=== PATIENT | female | born 1995 | race Caucasian/White ===

== ENCOUNTER 2022-01-17 15:08 | Emergency (ER) | payer OTHER, SELFPAY ==
--- NOTE | ~2022-01-17 | XR_ITS ---
EXAMINATION: XR hand LT min 3V EXAM DATE: 01/17/2022 15:40 INDICATION: Initial encounter following injury, with pain of the left hand TECHNIQUE: Left hand frontal, lateral and oblique projections obtained and reviewed. There is no gustavo or study for comparison. FINDINGS: Left metacarpal bones are unremarkable. There are no acute fractures or dislocations iden tified. There is no subcutaneous gas. The soft tissue is unremarkable. There are no radiopaque fo reign bodies. IMPRESSION: Left hand exam without acute osseous findings. Reviewed, dictated and finalized at location A. AUDIT MANAGER
[2022-01-17 15:16] VITALS: BP 120/73; PULSE 90; RESP 20; TEMP 36.7; O2SAT 100
--- NOTE | 2022-01-17 15:20 | ED.UPPEXIN ---
HPI - Extremity Injury (Upper) General Chief Complaint: Extremity Injury, Upper Stated Complaint: Left Hand Injury/Work Comp Time Seen by Provider: 01/17/22 15:21 Source: patient and RN notes reviewed History of Present Illness HPI narrative: Patient is a 26-year-old female who presents the urgent care with complaints of a left hand injury while working for [employer] today. Patient states that she was loading boxes off a pallet which fell onto her left hand at 930 this morning. Patient states that the pain increased throughout her workday. Patient has not taken anything [id number] for her pain. No other complaints or injuries. No acute distress noted. Patient aware of the plan of care. Some parts of this dictation were generated by voice recognition software and may contain typographical and/or grammatical inaccuracies. Related Data Home Medications Medication Instructions Recorded Confirmed bupropion HCl [Wellbutrin XL] 300 mg PO QAM 01/17/22 01/17/22 Allergies Allergy/AdvReac Type Severity Reaction Status Date / Time No Known Allergies Allergy Verified 01/17/22 15:29 Review of Systems Review of Systems: CONSTITUTIONAL: Denies fever, chills, or sweats. EYES: Denies visual changes, redness, or discharge. ENT: Denies rhinorrhea, sore throat, otalgia, congestion CARDIOVASCULAR: Denies chest pain, palpitations, or edema. RESPIRATORY: Denies cough or dyspnea. GASTROINTESTINAL: Denies abdominal pain, nausea, vomiting, or diarrhea. GENITOURINARY: Denies dysuria or hematuria. SKIN: Denies rash or itching. MUSCULOSKELETAL: Reports of left hand pain due to injury NEUROLOGIC: Denies headache, numbness, or weakness. PMFSH Comments At the time of my signature, I reviewed and agree with the nursing past medical, surgical, social, and family history. There is no relevant family history pertinent to the patient complaint. Exam Narrative: GENERAL: This is a well-nourished, well-developed patient, in no apparent distress. HEAD: normocephalic, atraumatic. EYES: PERRL. Sclera clear/white. Vision is grossly intact. EARS: External ears normal NOSE: External nose normal with no obvious nasal discharge, nares without redness, no rhinorrhea. THROAT: Mucous membranes moist, posterior pharynx clear. NECK: Neck supple CARDIOVASCULAR: Regular rate and rhythm without murmurs, gallops, or rubs. RESPIRATORY: Clear to auscultation. Breath sounds equal bilaterally. No wheezes, rales, or rhonchi. SKIN: warm, intact with no suspicious lesions or rash, good texture and turgor. NEURO: awake, alert, and oriented to person, place and time. There were no obvious focal neurologic abnormalities. EXTREMITIES: 2 cm area of ecchymosis/edema noted to the ulnar aspect of the dorsal left hand. Positive strong left radial pulse with capillary refill less than 2 seconds. Range of motion to left upper extremity within normal limits. Course Course Level of Care: Express Care Visit Vital Signs Vital signs: Vital Signs Temperature 98.0 F 01/17/22 15:16 Pulse Rate 90 01/17/22 15:16 Respiratory Rate 20 01/17/22 15:16 Blood Pressure 120/73 01/17/22 15:16 Pulse Oximetry 100 01/17/22 15:16 Temperature 98.0 F 01/17/22 15:16 Pulse Rate 90 01/17/22 15:16 Respiratory Rate 20 01/17/22 15:16 Blood Pressure 120/73 01/17/22 15:16 Pulse Oximetry 100 01/17/22 15:16 Reviewed MDM - Extremity Injury (Upper) MDM Narrative Medical decision making narrative: Reviewed x-ray results with the patient. She is aware that x-ray was negative for any abnormality/fractures. Advised patient to use ice/Tylenol/ibuprofen as needed for comfort and pain. May use a Augustine wrap as needed. If you develop any increase in swelling or pain, would advise follow-up with your PCP and/or workman's comp related occupational health. Follow-up with your PCP within 2 to 5 days of your worsening symptoms or failure to improve. Differential Diagnosis Differential d
== END 2022-01-17 16:12 | disposition home or self-care (01) ==
PROVIDERS: Emergency Provider Nurse Practitioner Family
DX: S60.222A Contusion of left hand, initial encounter (principal); W20.8XXA Other cause of strike by thrown, projected or falling object, initial encounter; Y99.0 Civilian activity done for income or pay; F32.A Depression, unspecified
CPT/HCPCS: 73130; 99213; G0463

== ENCOUNTER 2022-12-10 14:30 | Emergency (ER) | payer OTHER, SELFPAY ==
[2022-12-10 14:34] VITALS: BP 114/71; PULSE 77; RESP 16; TEMP 36.9; O2SAT 99
--- NOTE | 2022-12-10 14:44 | ED.UPPEXIN ---
HPI - Extremity Injury (Upper) General Chief Complaint: Extremity Injury, Upper Stated Complaint: Pains thru left shoulder/back Time Seen by Provider: 12/10/22 14:44 History of Present Illness HPI narrative: PATIENT PRESENTS WITH LEFT SHOULDER PAIN. PATIENT FEELS THAT SHE HAS PULLED A MUSCLE. PATIENT WORKS FOR [employer] IN THE [employer] ON A DAILY BASIS. NO CHEST PAIN AND NO SHORTNESS OF BREATH NO URI SYMPTMS. PATIENTS HAS NOT TAKEN ANYTHING OTC FOR HER SYMPTOMS AND WOULD LIKE A WORK NOTED. Related Data Home Medications Medication Instructions Recorded Confirmed bupropion HCl 300 mg 24 hr tablet, 300 mg PO QAM 01/17/22 01/17/22 extended release (Wellbutrin XL) Allergies Allergy/AdvReac Type Severity Reaction Status Date / Time No Known Allergies Allergy Verified 01/17/22 15:29 Review of Systems Review of Systems: CONSTITUTIONAL: DENIES FEVER, CHILLS, OR SWEATS. EYES: DENIES VISUAL CHANGES, REDNESS, OR DISCHARGE. ENT: DENIES RHINORRHEA, CONGESTION, SORE THROAT, OR OTALGIA. CARDIOVASCULAR: DENIES CHEST PAIN, PALPITATIONS, OR EDEMA. RESPIRATORY: DENIES COUGH OR DYSPNEA. GASTROINTESTINAL: DENIES ABDOMINAL PAIN, NAUSEA, VOMITING, OR DIARRHEA. GENITOURINARY: DENIES DYSURIA OR HEMATURIA. SKIN: DENIES RASH OR ITCHING. MUSCULOSKELETAL: DENIES BACK PAIN, JOINT PAIN, OR MYALGIA. NEUROLOGIC: DENIES HEADACHE, NUMBNESS, OR WEAKNESS. PSYCHIATRIC: DENIES ANXIETY OR DEPRESSION. PMFSH Comments AT TIME OF SIGNATURE, AGREE WITH NURSING PAST MEDICAL, SURGICAL, SOCIAL AND FAMILY HISTORY. THERE IS NO RELEVANT FAMILY HISTORY PERTINENT TO THE PRESENTING COMPLAINT Exam Narrative: GENERAL: WELL-APPEARING, WELL-NOURISHED, AND IN NO ACUTE DISTRESS. HEAD: NORMOCEPHALIC, ATRAUMATIC. EYES: PERRLA AND EOMI. ENT: NARES CLEAR, NO RHINORRHEA OR EPISTAXIS. MUCOUS MEMBRANES MOIST. NECK: SUPPLE. CHEST: CLEAR TO AUSCULTATION. NO RESPIRATORY DISTRESS. HEART: REGULAR RATE AND RHYTHM. NO MURMUR HEARD. NORMAL PERIPHERAL PULSES. ABDOMEN: SOFT, NONTENDER, NONDISTENDED, NORMAL ACTIVE BOWEL SOUNDS. EXTREMITIES: NORMAL RANGE OF MOTION. NO EDEMA. SHOULDER EXAM NO SWELLING, BRUISING, SKIN CHANGES. SKIN INTACT. NORMAL RADIAL PULSE. NO DEFORMITY OF SHOULDER. NO CLAVICLE TENDERNESS. NORMAL UE SENSATION AND STRENGTH. ROM EVALUATED - CAN RAISE UE ABOVE SHOULDER, CAN ABDUCT, ADDUCT, EXTERNALLY ROTATE AND CAN INTERNALLY ROTATE AND RAISE THUMB UP THE SPINE. NO AC JOINT TENDERNESS, CAN CROSS ARM HORIZONTALLY AND PLACE HAND ON OPPOSITE SHOULDER, NO WINGING OF THE SCAPULA. SUPRASPINATUS APPEARS NORMAL WITH ARMS STRAIGHT OUT AT 30 DEGREES, THUMB DOWN , CAN ABDUCT AGAINST RESISTANCE. SKIN: WARM, DRY, NO RASH. NEURO: NO FOCAL DEFICITS. ALERT AND ORIENTED X3. CARLA COMA SCALE EYE OPENING: SPONTANEOUS 4 CARLA COMA SCALE MOTOR: OBEYS COMMANDS 6 CARLA COMA SCALE VERBAL: ORIENTED 5 CARLA COMA SCALE TOTAL 15 Course Course Level of Care: Express Care Visit Vital Signs Vital signs: Vital Signs Temperature 36.9 C 12/10/22 14:34 Pulse Rate 77 12/10/22 14:34 Respiratory Rate 16 12/10/22 14:34 Blood Pressure 114/71 12/10/22 14:34 Pulse Oximetry 99 12/10/22 14:34 Oxygen Delivery Room Air 12/10/22 14:34 Temperature 36.9 C 12/10/22 14:34 Pulse Rate 77 12/10/22 14:34 Respiratory Rate 16 12/10/22 14:34 Blood Pressure 114/71 12/10/22 14:34 Pulse Oximetry 99 12/10/22 14:34 Oxygen Delivery Room Air 12/10/22 14:34 DISCUSSED X-RAY EXTREMITY TODAY BUT PATIENT DECLINES X-RAY FEELS THAT IT IS MUSCLE STRAIN AND NO BONE INVOLVEMENT MDM - Extremity Injury (Upper) Differential Diagnosis Differential diagnosis: Likely sprain and strain of wrist, fracture of wrist, finger sprain, dislocation of finger, Colles' fracture, fracture of hand, dislocation of shoulder, fracture of humerus and fracture of clavicle Discharge Plan Discharge Clinical Impression: Muscle strain, Left shoulder strain, Strain of muscle(s
== END 2022-12-10 14:50 | disposition home or self-care (01) ==
PROVIDERS: Emergency Provider Nurse Practitioner Family; PCP Family Medicine
DX: S46.912A Strain of unspecified muscle, fascia and tendon at shoulder and upper arm level, left arm, initial encounter (principal); S46.012A Strain of muscle(s) and tendon(s) of the rotator cuff of left shoulder, initial encounter; X50.3XXA Overexertion from repetitive movements, initial encounter; Y99.0 Civilian activity done for income or pay
CPT/HCPCS: 99213; G0463

== ENCOUNTER 2024-03-27 12:54 | Emergency (ER) | payer OTHER, SELFPAY ==
--- NOTE | ~2024-03-27 | XR_ITS ---
EXAMINATION: XR knee LT min 4V DATE: 03/27/2024 13:24 INDICATION: Left knee trauma with medial patellar subluxation TECHNIQUE: Anteroposterior, 2 oblique, sunrise and crosstable lateral views of the affected knee were obtained COMPARISON: None. FINDINGS: Alignment is normal. No fracture. Joint spaces are normal. Small knee joint effusion without layerin g lipohemarthrosis. Soft tissues are unremarkable. IMPRESSION: 1. Small left knee joint effusion. No osseous abnormality. Reviewed, dictated and finalized at location A.
[2024-03-27 13:05] VITALS: BP 131/74; PULSE 83; RESP 16; TEMP 36.9; O2SAT 100
--- NOTE | 2024-03-27 13:09 | ED.LOWEXIN ---
HPI - Extremity Injury (Lower) General Chief Complaint: Extremity Injury, Lower Stated Complaint: Left Knee Injury Source: patient Mode of arrival: ambulatory Limitations: no limitations History of Present Illness HPI Narrative: [age] year female presented for complaint of left knee pain after injury yesterday. She states the knee was dislocated after she struck the washing machine; patella displaced laterally per the photo provided. States after about one hour, it moved into place. Continues to report muscle spasm surrounding the site, and the knee feels tension. Able to bear some weight and has near normal ROM. Taking ibuprofen. Related Data Allergies Allergy/AdvReac Type Severity Reaction Status Date / Time No Known Allergies Allergy Verified 03/27/24 13:11 Review of Systems Review of Systems: CONSTITUTIONAL: Denies body aches, fever, chills CARDIOVASCULAR: Denies chest pain, palpitations, or edema. RESPIRATORY: Denies cough or dyspnea. GASTROINTESTINAL: Denies abdominal pain, nausea, vomiting, or diarrhea. SKIN: Denies rash, itching, or wounds. MUSCULOSKELETAL: Reports left knee pain NEUROLOGIC: Denies headache, numbness, tingling, or weakness. All systems reviewed & are unremarkable except as noted in HPI and below PMFSH Comments At time of signature, I have reviewed and agree with nursing past medical, surgical, social and family history unless otherwise noted. Please see nursing chart for further information. There is no relevant family history pertinent to the presenting complaint Exam Narrative: GENERAL: Well-appearing, well-nourished, and in no acute distress. CHEST: Speaks in full sentences. No respiratory distress. HEART: Regular rate and rhythm. Normal and equal peripheral pulses. EXTREMITIES: left leg has normal strength and sensation, slightly decreased range of motion at knee, endorses pain with movements. mild swelling, no ecchymosis, no redness or warmth. No point tenderness. No tenderness over the infrapatellar tendon. No tenderness over the proximal fibular head. No quadriceps tenderness. No open wounds, or obvious deformity; alignment normal, pulse palpable and equal bilaterally, skin warm, dry, pink. Capillary refill less than 3 seconds. SKIN: Warm, dry, no rash. NEURO: Alert and oriented x3. PSYCH: Normal mood and affect Course Course Emergency Course: Patient is aware of diagnosis, understands and agrees to treatment plan. Anticipatory guidance given. Patient agrees to follow-up as directed and is aware of reasons to seek care at the emergency department. Portions of this record may have been created with voice recognition software Level of Care: Express Care Visit Vital Signs Vital signs: Vital Signs Temperature 98.4 F 03/27/24 13:05 Pulse Rate 83 03/27/24 13:05 Respiratory Rate 16 03/27/24 13:05 Blood Pressure 131/74 03/27/24 13:05 Pulse Oximetry 100 03/27/24 13:05 Oxygen Delivery Room Air 03/27/24 13:05 Temperature 98.4 F 03/27/24 13:05 Pulse Rate 83 03/27/24 13:05 Respiratory Rate 16 03/27/24 13:05 Blood Pressure 131/74 03/27/24 13:05 Pulse Oximetry 100 03/27/24 13:05 Oxygen Delivery Room Air 03/27/24 13:05 Reviewed MDM - Extremity Injury (Lower) MDM Narrative Medical decision making narrative: results of x-ray reviewed with patient. Knee immobilizer applied. Patient has crutches at home. She will follow-up with ortho. Discussed physical exam findings. Advised supportive measures and signs/symptoms to go to the ER. Pt is appropriate for outpt treatment and f/u. Differential Diagnosis Differential diagnosis: Likely acute internal derangement of knee and other (osteoarthritis, patella dislocation, patellar tendonitis, tendon rupture, gout, bakers cyst, septic bursitis, dvt, tibial plateau fracture) Imaging Data Radiologist's impression: Patient: Rosita Hammer : 1995 MR#: [id number] Age:
== END 2024-03-27 14:03 | disposition home or self-care (01) ==
PROVIDERS: Emergency Provider Nurse Practitioner Family
DX: M25.562 Pain in left knee (principal)
CPT/HCPCS: 73564; 99213; G0463; L1830

== ENCOUNTER 2025-03-16 11:39 | Emergency (ER) | payer OTHER, SELFPAY ==
--- OUTSIDE RECORDS SUMMARY | 2025-03-16 11:42 | XMS_ITS | Continuity of Care Document ---
Author Organization [facility] Address [address] [place] [address] [place] [address] Phone Care Team Providers Care Ornamental Iron Worker Name Role Phone Augustin Jackson MD Unavailable Unavailable Allergies, Adverse Reactions, Alerts Substance Reaction Status Criticality No Known Allergies Active No Inform ation Medications Medication Instructions Dosage Effective Dates (start - stop) Status Comments Concerta 27 mg tablet,extended release take 1 tablet by oral route every day in the morning 27 MG - Active Wellbutrin XL 150 mg 24 hr tablet, extended release take 1 tablet by oral route every morning 150 MG - Active Procedures Procedure Date PREV VISIT, NEW, AGE 18-39 OFFICE/OUTPATIENT VISIT, [facility] Advance Directives Directive Yes / No Effective Date File Name No Information Encounters Encounter Description Practice Location Reason(s) For Visit Diagnoses Date Provider Providers Copied on Encounter PREV VISIT, NEW, AGE 18-39 [facility] [place], [address] [place], [place], [id number], [place] tel:[phone] [facility] [place] physical (chief complaint) Encounter for general adult medical exam w abnormal findingsOther primary ovarian failureAttention deficitGeneralized Anxiety Disorder 3 [address] [place], [id number] , [place]. tel:[phone] Family History Family Member Type Diagnosis Age At Onset Mother Problem pancreatitis Sister Problem bipolar Father Problem lung [place] Payers Payer name Insurance type Covered alliance party ID Authoriza tion(s) [facility] CI [id number] Social History Type Description Quantity Date Captured Comments Alcohol Use Details Caffeine Use Details Unknown Tobacco Use Status Ex-cigarette smoker 025 Smoking Status Former smoker Smoking Tobacco Use Details Cigarette: Age Started: 17, Age Stopped: 20, Years Used 3 Cigarette: 2 Cigarettes per day, Pack Year: 0.3 Sex Female Vital Signs Date / Time: Height Weight BMI Pulse Rate Blood Pressure Temperature Respiratory Rate Body Surface Area Head Circumference BMI percentile Pulse Ox Inhaled Ox 10:47 AM 67.00 in 163.00 lbs 25.5 3 kg/m eter (2) 94 /min 110/70 mm[Hg] 97.9 F 16 /min Chief Complaint And Reason For Visit From encounter dated '03/12/2025 10:42'. physical (chief complaint). Description: Pt needs annual physical pt has history of ADD and she used to takes strattera and concerta 15 years ago and she also has chronic anxiety and depression and she was on wellbutrin 3 years ago which did help her depression but she stopped it 3 years ago due toinsurance issue Pt mainly has ADD symptoms currently and not so much anxiety or depression Pt denies any suicidal or homicidal thought Pt denies any crying spells Pt has premature ovarian failure. Ptnever had period all her life. Pt states that her ovary and uterus is chronically shrunk in size and she saw [employer] when she was teenager and was told that she has premature ovarian failure Plan Of Treatment Date Type Action Status Referral Ordered: [place], PELVIC (NONOBSTETRIC); ordered Appointment Rosita Hammer BOOKED History Of Present Illness Encounter Date Complaint History Of Prese nt Illness physical Pt needs annual physical pt has history of ADD and she used to takes strattera and concerta 15 years ago and she also has chronic anxiety and depression and she was on wellbutrin 3 years ago which did help her depression but she stopped it 3 years ago due to insurance issue Pt mainly has ADD symptoms currently and not so much anxiety or depression Pt denies any suicidal or homicidal thought Pt denies any crying spells Pt has premature ovarian failure. Pt never had period all her life. Pt states that her ovary and uterus is chronically shrunk in size and she saw [employer] when she was teenager and was told that she has premature ovarian failure Instructions Date Instruction Additional Infor mation No Information Assessments Type Assessment Date assessment Encounter for general adult medi alexis exam w abnormal findings assessment Other primary ovarian failure Ap assessment Attention deficit assessment Generalized Anxiety Disorder Feb Mental Status Date Cognitive Assessment Orientation - [place] ed to time, place, person, situation.
--- OUTSIDE RECORDS SUMMARY | 2025-03-16 11:42 | XMS_ITS | Referral Summary ---
Author Organization [facility] Virtual Care Address [address] [place] [phone] Phone Care Team Providers Care Adult Education Teacher Name Role Phone Subha Giang NP Primary Care Provider Social History Tobacco Use Types Packs/Day Years Used Date Smoking Tobacco: Never Assessed Personal Safety Answer Date Recorded Getting School Help Needed Not on file 04/19 Comments Unknown Sex and Gender Information Value Date Recorded Sex Assigned at Not on file Legal Sex Female 10:41 PM CDT Gender Identity Not on file Sexual Orientation Not on file Plan of Treatment Not on file Care Teams Adult Education Teacher Relationship Specialty Start Date End Date Subha Giang NP [address] [address] PCP - General Infectious Diseases 07/01/24
--- OUTSIDE RECORDS SUMMARY | 2025-03-16 11:42 | XMS_ITS | Clinical Summary ---
Author Organization [facility] Virtual Care Address [address] [place] [phone] Phone Care Team Providers Care Rug Dry Room Attendant Name Role Phone Subha Giang NP Primary [...] of Treatment Not on file Care Teams Rug Dry Room Attendant Relationship Specialty Start Date End Date Subha Giang NP [address] [address] PCP - General Infectious Diseases 07/01/24
--- OUTSIDE RECORDS SUMMARY | 2025-03-16 11:45 | XMS_ITS | Continuity of Care Document ---
Author Organization [facility] Address [address] [place] [address] [place] [address] Phone Care Team Providers Care Traffic Operator Name Role Phone Augustin Jackson MD Unavailable Unavailable Allergies, Adverse Reactions, Alerts Substance Reaction Status Criticality No Known Allergies Active No Inform ation Medications Medication Instructions Dosage Effective Dates (start - stop) Status Comments Wellbutrin XL 150 mg 24 hr tablet, extended release take 1 tablet by oral route every morning 150 MG - Active Concerta 27 mg tablet,extended release take 1 tablet by oral route every day in the morning 27 MG - Active Procedures Procedure Date PREV VISIT, NEW, AGE 18-39 OFFICE/OUTPATIENT VISIT, [facility] Advance Directives Directive Yes / No Effective Date File Name No Information Encounters Encounter Description Practice Location Reason(s) For Visit Diagnoses Date Provider Providers Copied on Encounter PREV VISIT, NEW, AGE 18-39 [facility], [address] [place], [place], [id number], [place] tel:[phone] [facility] physical (chief complaint) Encounter for general adult medical exam w abnormal findingsOther primary ovarian failureAttention deficitGeneralized Anxiety Disorder 3 5 Manuel Ruffin. [address] [place], [id number] , [place]. tel:[phone] Family History Family Member Type Diagnosis Age At Onset Mother Problem pancreatitis Sister Problem bipolar Father Problem lung [place] Payers Payer name Insurance type Covered constitution party ID Authoriza tion(s) [facility] CI [id number] Social History Type Description Quantity Date Captured [...] chronically shrunk in size and she saw KAITARA TARAKA when she was teenager and was told [...] chronically shrunk in size and she saw KAITARA TARAKA when she was teenager and was told that she has premature ovarian failure Instructions Date Instruction Additional Infor mation No Information Assessments Type Assessment Date assessment Encounter for general adult medi alexis exam w abnormal findings assessment Other primary ovarian failure Ap assessment Attention deficit assessment Generalized Anxiety Disorder Feb Mental Status Date Cognitive Assessment Orientation - [place] ed to time, place, person, situation.
[2025-03-16 11:46] VITALS: BP 131/70; PULSE 83; RESP 16; TEMP 37.1; O2SAT 100
--- NOTE | 2025-03-16 12:21 | ED_ITS ---
HPI - Extremity Problem General Chief complaint: Extremity Problem,Nontraumatic Stated complaint: jennifer knee pain Time Seen by Provider: 03/16/25 12:05 Source: patient and RN notes reviewed Mode of arrival: ambulatory Limitations: no limitations History of Present Illness HPI Narrative: 29-year-old female presents Express Care complaining of bilateral knee pain. Patient states he has chronic knee problems. Patient says her right knee hurts more than her left. 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 Patient says she stands on her feet for at least 12 hours when she is at work. Patient has dislocated her left knee cap before in follow-up with orthopedist and had physical therapy performed. Patient said over the last week her knees have her worse. Patient denies any concerns for a patellar dislocation. Patient took Tylenol and ibuprofen and said her pain went from a 7/10 to 2/10. Patient states at the end of her work shifts she feels like her knees and lower legs feel full and throbbing. Patient says it the fullness and throbbing gets better when lying down and being off her feet. She does not wear compression stockings at work. Patient normally wears a knee brace on her left knee but place on her right knee because it was hurting more. Patient denies any apparent injury to her knee any falls. Patient denies any numbness or tingling. Patient is able to bear weight on her lower extremities. Related Data Home Medications ?Medication ?Instructions ?Recorded ?Confirmed ?Last Taken ?Type bupropion HCl 150 mg 24 hr tablet, mg PO 03/16/25 Unknown History extended release methylphenidate HCl 27 mg mg PO 03/16/25 Unknown History tablet,extended release 24 hr Allergies Allergy/AdvReac Type Severity Reaction Status Date / Time No Known Allergies Allergy Verified 03/16/25 11:50 Review of Systems Review of Systems: CONSTITUTIONAL: Denies fever, chills, or sweats. EYES: Denies visual changes, redness, or discharge. ENT: Denies rhinorrhea, congestion, sore throat, or otalgia. CARDIOVASCULAR: Denies chest pain, palpitations, or edema. RESPIRATORY: Denies cough or dyspnea. GASTROINTESTINAL: Denies abdominal pain, nausea, vomiting, or diarrhea. GENITOURINARY: Denies dysuria or hematuria. SKIN: Denies rash or itching. MUSCULOSKELETAL: Denies back pain, swelling, injury, or myalgia. Positive for bilateral knee pain. NEUROLOGIC: Denies headache, numbness, or weakness. PSYCHIATRIC: Denies anxiety or depression. All other systems reviewed are negative, except as documented in HPI. [facility] Past Medical History Medical History History of bruising easily Dislocation of left patella Surgical History Surgical History No significant past surgical history Social History Social History Smoking status: Current every day smoker Tobacco type: e-cigarettes/vaping Alcohol intake: current Substance use: never Substance use type: does not use Do You Feel Safe in your Home?: Yes Lack of Transportation: No Lack of Food: Never True Current Housing: I Have Housing Concerned About Future Housing: No Difficulty Paying Gas/Electric Bills: No Difficulty Paying for Meds: No Currently Unemployed: No Education: High School Diploma/GED Difficulty w/ Childcare or Family Care: No Comments At the time of my signature, I reviewed and agree with the nursing past medical, surgical, social, and family history. There is no relevant family history pertinent to the patient complaint. Exam Narrative: GENERAL: This is a well-nourished, well-developed adult, in no apparent distress. They are non ill-appearing, nontoxic appearing. HEAD: normocephalic, atraumatic. EYES: Sclera clear/white. Conjunctiva normal. Vision is grossly intact. Ex traocular movements intact EARS: External ears normal. Hearing grossly intact. NOSE: External nose normal THROAT: Mucous membranes moist NECK: Normal range of motion CARDIOVASCULAR: Regular rate and rhythm RESPIRATORY: Respiratory rate normal, respiratory effort nonlabored, no respiratory distress SKIN: warm, Dry, intact with no suspicious lesions or rash, good texture and turgor. NEURO: awake, alert, and oriented to person, place and time. There were no obvious focal neurologic abnormalities. EXTREMITIES: Bilateral knees: No obvious swelling, deformity, bruising, redness, injury. Normal range of motion of knees. No tenderness to palpation, during range of motion, or bony tenderness. No varus or valgus laxity. No palpable cords. Negative anterior drawer test. No patellar dislocation. Normal sensation. Neurovascular status intact distally injury. Pedal pulse 2 +and palpable. Capillary refill less than 2 seconds. BACK: Nontender without deformity. No CVA tenderness. Course Course Emergency Course: Portions of this record may have been created with voice recognition software Level of Care: Express Care Visit Vital Signs Vital signs: Vital Signs Temperature 98.7 F 03/16/25 11:46 Pulse Rate 83 03/16/25 11:46 Respiratory Rate 16 03/16/25 11:46 Blood Pressure 131/70 03/16/25 11:46 Pulse Oximetry 100 03/16/25 11:46 Oxygen Delivery Room Air 03/16/25 11:46 Temperature 98.7 F 03/16/25 11:46 Pulse Rate 83 03/16/25 11:46 Respiratory Rate 16 03/16/25 11:46 Blood Pressure 131/70 03/16/25 11:46 Pulse Oximetry 100 03/16/25 11:46 Oxygen Delivery Room Air 03/16/25 11:46 Reviewed MDM - Extremity (Nontraumatic) MDM Narrative Medical decision making narrative: No apparent injury the patient's bilateral knees. Symptoms are likely consistent with arthritis or venous insufficiency. Patient will wear her knee brace at work, offered her and Augustine wrap and she said she will buy another knee brace for both knees. Also recommend patient wearing compression stockings to help with the fullness that she feels in her legs during work. Discussed physical exam findings. Advised supportive measures and signs/symptoms to go to the ER. Pt is appropriate for outpt treatment and f/u. Differential Diagnosis Differential diagnosis: Likely other (Knee sprain, arthritis, venous insufficiency) Critical Care Time Critical Care Time Critical Care Time: No Discharge Plan Discharge Clinical Impression: Bilateral knee pain Qualifiers: Chronicity: acute Qualified Code(s): M25.561 - Pain in right knee Patient Disposition: Home Condition: Stable Instructions: Knee Pain (ED) Additional Instructions: Rest and elevate the leg; bear weight as tolerated Apply ice 15-20 minute intervals several times a day Wear a knee brace or wear an Augusitne wrap for comfort. Please wear compression stockings that are knee-high at work. Motrin 600mg -800mg every 8 hours, alternate with Tylenol 1000mg every 8 hours as needed Follow up with your primary care provider or your orthopedist in 1-2 weeks Patient Language: Icelandic Prescriptions: No Action methylphenidate HCl 27 mg tablet extended release 24hr PO bupropion HCl 150 mg tablet extended release 24 hr PO Follow-up/Referrals: Augustin Jackson MD [Primary Care Provider] - Stand Alone Forms: Work/School Release IP Time of Disposition: 12:12
== END 2025-03-16 12:16 | disposition home or self-care (01) ==
PROVIDERS: PCP Emergency Medicine
DX: M25.561 Pain in right knee (principal); M25.562 Pain in left knee; F17.290 Nicotine dependence, other tobacco product, uncomplicated
CPT/HCPCS: 99212; G0463

== ENCOUNTER → 2025-03-24 11:57 | Outpatient (CLI) | payer OTHER, SELFPAY ==
--- NOTE | ~2025-03-24 | XR_ITS ---
Right Knee Technique: AP, lateral, and oblique views were obtained. Clinical History: Pain Findings: No fracture or dislocation is seen. Osseous alignment is anatomic. Joint spaces are preserv ed without degenerative or erosive change. Soft tissues are unremarkable. No joint effusion is seen. Impression: Unremarkable right knee radiographs. Reviewed, dictated and finalized at location . Impression: Unremarkable right knee radiographs.
--- OUTSIDE RECORDS SUMMARY | 2025-03-24 12:02 | XMS_ITS | Clinical Summary ---
Author Organization [facility] Virtual Care Address [address] [place] [phone] Phone Care Team Providers Care Wireless Network Engineer Name Role Phone Subha Giang NP Primary Care Provider [phone] Social History Tobacco Use Types Packs/Day Years [...] of Treatment Not on file Care Teams Wireless Network Engineer Relationship Specialty Start Date End Date Subha Giang NP [address] [address] PCP - General Infectious Diseases 07/01/24
--- OUTSIDE RECORDS SUMMARY | 2025-03-24 12:02 | XMS_ITS | Continuity of Care Document ---
Author Organization [facility] Address [address] [facility] [place] [address] Phone Care Team Providers Care Hot Box Operator Name Role Phone Augustin Jackson MD Unavailable Unavailable Allergies, Adverse Reactions, Alerts Substance Reaction Status Criticality No Known Allergies Active No Inform ation Medications Medication Instructions Dosage Effective Dates (start - stop) Status Comments Prempro 0.3 mg-1.5 mg tablet take 1 tablet by oral route every day 1.00 tablet - Active meloxicam 15 mg tablet take 1 tablet by oral route every day 15 MG - Active Concerta 36 mg tablet,extended release take 1 Tablet by oral route every day in the morning 36 MG - Active Wellbutrin XL 150 mg 24 hr tablet, extended release take 1 tablet by oral route every morning 150 MG - Active Procedures Procedure Date OFFICE/OUTPATIENT VISIT, EST PREV VISIT, NEW, AGE 18-39 OFFICE/OUTPATIENT VISIT, NEW Advance Directives Directive Yes / No Effective Date File Name No Information Encounters Encounter Description Practice Location Reason(s) For Visit Diagnoses Date Provider Providers Copied on Encounter OFFICE/OUTPA TIENT VISIT, EST [facility], [address] [place], [id number], [place] tel:[phone] [facility] HLP (chief complaint) amenorrhea 1 (chief complaint) knee pain1 (chief complaint) ADD (chief complaint) Pain in right kneeAttention deficitGeneralized Anxiety DisorderAmenorrheaM ixed hyperlipidemia 5 Manuel Ruffin. [address], [id number] , [place]. tel:[phone] PREV VISIT, NEW, AGE 18-39 [facility], [address], [place], [place], [id number], [place] tel:[phone] [facility] physical (chief complaint) Encounter for general adult medical exam w abnormal findingsOther primary ovarian failureAttention deficitGeneralized Anxiety Disorder Apr-3 5 Manuel Ruffin. [address], [place], [place], [id number] , [place]. tel:[phone] Family History Family Member Type Diagnosis Age At Onset Mother Problem pancreatitis Sister Problem bipolar Father Problem lung [place] Payers Payer name Insurance type [facility] republican [facility] [id number] Social History Type Description Quantity Date Captured Comments Alcohol Use Details Caffeine Use Details Unknown Tobacco Use Status Ex-cigarette smoker 025 Smoking Status Former smoker Sex Female Vital Signs Date / Time: Height Weight BMI Pulse Rate Blood Pressure Temperature Respiratory Rate Body Surface Area Head Circumference BMI percentile Pulse Ox Inhaled Ox 12:33 PM 67.00 in 160.40 lbs 25.1 2 kg/m eter (2) 98 /min 124/72 mm[Hg] 98.0 F 16 /min Chief Complaint And Reason For Visit From encounter dated '03/21/2025 12:26'. HLP (chief complaint). Description: Pt has mild HLP Pt has low D amenorrhea1 (chief complaint). Description: Pt has premature ovarian failure. her hormone confirmedpostmenopausal status Pt never had period in her life Pt does wants children. Pt denies any pelvic pain or vaginal bleeding. Pt c/o frequent hot flush knee pain1 (chief complaint). Description: Pt c/o acute onset of right knee pain since 5 days ago without any injury or swelling Pt denies any knee redness or warmth Pt does do physical work all day.pt notices sharp and dull pain around right patella area worse with movement. Pt also noticed some left knee pain as well shortly after right knee pain Pt started PT for knee pain several days ago. Pt went to Er and was told to take motrin ,which only helps slightly. ADD (chief complaint). Description: Pt has ADD. Pt states that concerta has not helped very much. her mood is better with wellbutrin Plan Of Treatment Date Type Action Status Referral Ordered: KNEE XRAY TWO-VIEW Right ordered Referral Ordered: [place], PELVIC (NONOBSTETRIC); ordered Appointment Rosita Hammer BOOKED History Of Present Illness Encounter Date Complaint History Of Prese nt Illness ADD Pt has ADD. Pt s tates that concerta has not helped very much. her mood is better with wellbutrin knee pain1 Pt c/o acute ons et of right knee pain since 5 days ago without any injury or swelling Pt denies any knee redness or warmth Pt does do physical work all day. pt notices sharp and dull pain around right patella area worse with movement. Pt also noticed some left knee pain as well shortly after right knee pain Pt started PT for knee pain several days ago. Pt went to Er and was told to take motrin ,which only helps slightly. amenorrhea1 Pt has premature ovarian failure. her hormone confirmed postmenopausal status Pt never had period in her life Pt does wants children. Pt denies any pelvic pain or vaginal bleeding. Pt c/o frequent hot flush HLP Pt has mild HLP Pt has low D physical Pt needs annual physical pt has [...] chronically shrunk in size and she saw LEAN ENGINEER when she was teenager and was told that she has premature ovarian failure Instructions Date Instruction Additional Infor janki No Information Assessments Type Assessment Date assessment Pain in right knee assessment Attention deficit assessment Generalized Anxiety Disorder March assessment Amenorrhea assessment Mixed hyperlipidemia Mental Status Date Cognitive Assessment Orientation - [place] ed to time, place, person, situation.
--- OUTSIDE RECORDS SUMMARY | 2025-03-24 12:02 | XMS_ITS | Referral Summary ---
Author Organization [facility] Virtual Care Address [address] [place] [phone] Phone Care Team Providers Care Family Therapist Name Role Phone Subha Giang NP Primary Care Provider [phone] Social History Tobacco Use Types Packs/Day Years [...] of Treatment Not on file Care Teams Family Therapist Relationship Specialty Start Date End Date Subha Giang NP [address] [address] PCP - General Infectious Diseases 07/01/24
== END ==
PROVIDERS: PCP Emergency Medicine; Visit Provider Emergency Medicine
DX: M25.561 Pain in right knee (principal)
CPT/HCPCS: 73560

== ENCOUNTER 2025-03-27 15:02 | Outpatient (CLI) | payer OTHER, SELFPAY ==
--- NOTE | ~2025-03-27 | US_ITS ---
Pelvic ultrasound. Clinical History: Primary ovarian failure Technique: Realtime transabdominal and translabial scanning of the pelvis was performed. Patient coul d not tolerate transvaginal imaging. Color flow Doppler and Doppler spectral analysis were performed. Findings: The uterus is anteverted, and measures 5.2 x 1.8 x 2.9 cm. The endometrial stripe has a th ickness of 5 mm. No focal mass is identified. The right ovary measures 2.3 x 1.0 x 2.4 cm. No significant right ovarian or adnexal mass is seen. The left ovary is not visualized. No significant left ovarian or adnexal mass is seen. There is no evidence of free fluid in the cul de sac. Impression: No significant abnormality seen. Left ovary not visualized. Reviewed, dictated and finalized at [facility]. Impression: No significant abnormality seen. Left ovary not visualized.
--- OUTSIDE RECORDS SUMMARY | 2025-03-27 15:11 | XMS_ITS | Clinical Summary ---
Author Organization [facility] Virtual Care Address [address] [place] [phone] Phone Care Team Providers Care Parimutuel Ticket Seller Name Role Phone Subha Giang NP Primary Care Provider [phone] Social History Tobacco Use Types Packs/Day Years [...] of Treatment Not on file Care Teams Parimutuel Ticket Seller Relationship Specialty Start Date End Date Subha Giang NP [address] [address] PCP - General Infectious Diseases 07/01/24
--- OUTSIDE RECORDS SUMMARY | 2025-03-27 15:11 | XMS_ITS | Referral Summary ---
Author Organization [facility] Virtual Care Address [address] [place] [phone] Phone Care Team Providers Care Clinical Documentation Clerk Name Role Phone Subha Giang NP Primary [...] of Treatment Not on file Care Teams Clinical Documentation Clerk Relationship Specialty Start Date End Date Subha Giang NP [address] [address] PCP - General Infectious Diseases 07/01/24
--- OUTSIDE RECORDS SUMMARY | 2025-03-27 15:11 | XMS_ITS | Continuity of Care Document ---
Author Organization [facility] Address [email or web address] [facility] [place] [address] Phone Care Team Providers Care Sorority Supervisor Name Role Phone Augustin Jackson MD Unavailable [...] Copied on Encounter OFFICE/OUTPA TIENT VISIT, EST [facility], [address] [place], [place], [id number], [place] tel:[phone] [facility] HLP (chief complaint) amenorrhea 1 (chief complaint) knee pain1 (chief complaint) ADD (chief complaint) Pain in right kneeAttention deficitGeneralized Anxiety DisorderAmenorrheaM ixed hyperlipidemia 5 Manuel [address]in. [address] [place], [place], [id number] , [place]. tel:[phone] PREV VISIT, NEW, AGE 18-39 [facility], [address], [place], [place], [id number], [place] tel:[phone] [facility] physical (chief complaint) Encounter for general adult medical exam w abnormal findingsOther primary ovarian failureAttention deficitGeneralized Anxiety Disorder Apr-3 5 Manuel Ruffin. [address], [place], [place], [id number] , [place]. tel:[phone] Family History Family Member Type Diagnosis Age At Onset Mother Problem pancreatitis Sister Problem bipolar Father Problem lung [place] Payers Payer name Insurance type Covered alliance party [facility] [id number] Social History Type Description Quantity Date Captured [...] Date Complaint History Of Prese nt Illness HLP Pt has mild HLP Pt has low D amenorrhea1 Pt has premature ovarian failure. her hormone confirmed postmenopausal status Pt never had period in her life Pt does wants children. Pt denies any pelvic pain or vaginal bleeding. Pt c/o frequent hot flush knee pain1 Pt c/o acute ons et [...] take motrin ,which only helps slightly. ADD Pt has ADD. Pt s tates that concerta has not helped very much. her mood is better with wellbutrin physical Pt needs annual physical pt has [...] chronically shrunk in size and she saw STAVE BOLT EQUALIZER when she was teenager and was told that she has premature ovarian failure Instructions Date Instruction Additional Infor mation No Information Assessments Type Assessment Date assessment Pain in right knee assessment Attention deficit assessment Generalized Anxiety Disorder March assessment Amenorrhea assessment Mixed hyperlipidemia Mental Status Date Cognitive Assessment Orientation - [place] ed to time, place, person, situation.
== END 2025-03-27 15:03 | disposition home or self-care (01) ==
PROVIDERS: PCP Emergency Medicine; Visit Provider Emergency Medicine
DX: E28.39 Other primary ovarian failure (principal)
CPT/HCPCS: 76830; 76856

== ENCOUNTER 2025-04-20 08:47 | Emergency (ER) | payer OTHER, SELFPAY ==
--- NOTE | ~2025-04-20 | XR_ITS ---
Left Knee Technique: AP, lateral, and oblique views were obtained. Clinical History: Pain Findings: No fracture or dislocation is seen. Osseous alignment is anatomic. Joint spaces are preserv ed without degenerative or erosive change. Soft tissues are unremarkable. No joint effusion is seen. Impression: Unremarkable left knee radiographs. Reviewed, dictated and finalized at [facility]. Impression: Unremarkable left knee radiographs.
--- NOTE | ~2025-04-20 | XR_ITS ---
Right Knee Technique: AP, lateral, and oblique views were obtained. Clinical History: Pain Findings: No fracture or dislocation is seen. Osseous alignment is anatomic. Joint spaces are preserv ed without degenerative or erosive change. Soft tissues are unremarkable. No joint effusion is seen. Impression: Unremarkable right knee radiographs. Reviewed, dictated and finalized at location . Impression: Unremarkable right knee radiographs.
--- OUTSIDE RECORDS SUMMARY | 2025-04-20 08:49 | XMS_ITS | Continuity of Care Document ---
Author Organization [facility] Address [address] [facility] [place] [address] Phone Care Team Providers Care Material Handling Crew Supervisor Name Role Phone Augustin Jackson MD Unavailable Unavailable Allergies, Adverse Reactions, Alerts Substance Reaction Status Criticality No Known Allergies Active No Inform ation Medications Medication Instructions Dosage Effective Dates (start - stop) Status Comments Vyvanse 30 mg capsule take 1 capsule by oral route every day in the morning 30 MG - Active Wellbutrin XL 300 mg 24 hr tablet, extended release take 1 tablet by oral route every morning 300 MG - Active Prempro 0.3 mg-1.5 mg tablet take 1 tablet by oral route every day 1.00 tablet - Active Procedures Procedure Date OFFICE/OUTPATIENT VISIT, [facility] OFFICE/OUTPATIENT VISIT, EST PREV VISIT, NEW, AGE 18-39 OFFICE/OUTPATIENT VISIT, NEW Advance Directives Directive Yes / No Effective Date File Name No Information Encounters Encounter Description Practice Location Reason(s) For Visit Diagnoses Date Provider Providers Copied on Encounter OFFICE/OUTPA TIENT VISIT, EST [facility], [address] [place], [place], [id number], [place] tel:[phone] [facility] anxiety1 (chief complaint) ADD (chief complaint) POV (chief complaint) knee pain1 (chief complaint) AmenorrheaAttention deficitGeneralized Anxiety DisorderPain in right knee 5 Manuel Ruffin. [address] [place], [id number] , [place]. tel:[phone] OFFICE/OUTPA TIENT VISIT, [facility], [address], [place], [place], [id number], tel:[phone] [facility] HLP (chief complaint) amenorrhea 1 (chief complaint) knee pain1 (chief complaint) ADD (chief complaint) Pain in right kneeAttention deficitGeneralized Anxiety DisorderAmenorrheaM ixed hyperlipidemia 5 Manuel Ruffin. [address] [facility] [address], [place], [place], [address] , [place]. tel:[phone] PREV VISIT, NEW, AGE 18-39 [facility], [address], [place], [place], [id number], [place] tel:[phone] [facility] physical (chief complaint) Encounter for general adult medical exam w abnormal findingsOther primary ovarian failureAttention deficitGeneralized Anxiety Disorder Apr-3 5 Manuel Ruffin. [address], [place], [place], [address] , [place]. tel:[phone] Family History Family Member Type Diagnosis Age At Onset Mother Problem pancreatitis Sister Problem bipolar Father Problem lung [place] Payers Payer name Insurance type Covered alliance party ID Authoriza ti(s) [facility] CI [id number] Social History Type Description Quantity Date Captured Comments Alcohol Use Details Caffeine Use Details Unknown Tobacco Use Status Ex-cigarette smoker 025 Smoking Status Former smoker Sex Female Vital Signs Date / Time: Height Weight BMI Pulse Rate Blood Pressure Temperature Respiratory Rate Body Surface Area Head Circumference BMI percentile Pulse Ox Inhaled Ox 11:47 AM 67.00 in 158.60 lbs 24.8 4 kg/m eter (2) 93 /min 110/70 mm[Hg] 97.9 F 16 /min Chief Complaint And Reason For Visit From encounter dated '04/08/2025 11:43'. anxiety1 (chief complaint). Description: pt has chronic anxiety and depression Pt is on wellbutrin and she still feels more depressed. pt denies any suicidal or homicidal thought. Pt denies any crying spells ADD (chief complaint). Description: Pt has ADD pt has not noticed much improvement with concerta. Pt still has difficulty with focus and concentration POV (chief complaint). Description: Pt has premature ovarian failure .Pt has hot flashes pt startedprempro recently but has not noticed much improvement yet. pelvic ultrasound is benign and left ovary is not visualized knee pain1 (chief complaint). Description: Pt states that right knee pain resolved. X ray ok. Pt isready to go back to work Plan Of Treatment Date Type Action Status Referral Ordered: Denis Rodriges MD -[facility]opathic & Osteopathic Physicians : Obstetrics & Gynecology (related to Amenorrhea) ordered Referral Referred To: Denis Rodriges MD [address] [facility] [address] [place], [place], [phone] Ordered: Referrals: Allopathic & Osteopathic Physicians : Obstetrics & Gynecology. Denis Rodriges MD. Evaluate and treat ordered Referral Ordered: KNEE XRAY TWO-VIEW Right ordered Referral Ordered: [place], PELVIC (NONOBSTETRIC); ordered Appointment Rosita Hammer BOOKED History Of Present Illness Encounter Date Complaint History Of Prese nt Illness knee pain1 Pt states that r ight knee pain resolved. X ray ok. Pt is ready to go back to work POV Pt has premature ovarian failure .Pt has hot flashes pt started prempro recently but has not noticed much improvement yet. pelvic ultrasound is benign and left ovary is not visualized ADD Pt has ADD pt flores s not noticed much improvement with concerta. Pt still has difficulty with focus and concentration anxiety1 pt has chronic a nxiety and depression Pt is on wellbutrin and she still feels more depressed. pt denies any suicidal or homicidal thought. Pt denies any crying spells HLP Pt has mild HLP Pt has low D amenorrhea1 Pt has premature ovarian failure. her hormone confirmed postmenopausal status Pt never had period in her life Pt does wants children. Pt denies any pelvic pain or vaginal bleeding. Pt c/o frequent hot flush ADD Pt has ADD. Pt s tates [...] to take motrin ,which only helps slightly. physical Pt needs annual physical pt has [...] chronically shrunk in size and she saw SECURITY POLICE OFFICER when she was teenager and was told that she has premature ovarian failure Instructions Date Instruction Additional Infor janki No Information Assessments Type Assessment Date assessment Amenorrhea assessment Attention deficit assessment Generalized Anxiety Disorder March assessment Pain in right knee Mental Status Date Cognitive Assessment Orientation - [place] ed to time, place, person, situation.
--- OUTSIDE RECORDS SUMMARY | 2025-04-20 08:49 | XMS_ITS | Referral Summary ---
Author Organization [facility] Virtual Care Address [address] [place] [phone] Phone Care Team Providers Care Aviation Mechanic Name Role Phone Subha Giang NP Primary Care Provider [phone] Social History Tobacco Use Types Packs/Day Years [...] of Treatment Not on file Care Teams Aviation Mechanic Relationship Specialty Start Date End Date Subha Giang NP [address] [address] PCP - General Infectious Diseases 07/01/24
--- OUTSIDE RECORDS SUMMARY | 2025-04-20 08:49 | XMS_ITS | Clinical Summary ---
Author Organization [facility] Virtual Care Address [address] [place] [phone] Phone Care Team Providers Care Hatchery Laborer Name Role Phone Subha Giang NP Primary [...] of Treatment Not on file Care Teams Hatchery Laborer Relationship Specialty Start Date End Date Subha Giang NP [address] [address] PCP - General Infectious Diseases 07/01/24
--- OUTSIDE RECORDS SUMMARY | 2025-04-20 08:58 | XMS_ITS | Continuity of Care Document ---
Author Organization [facility] Address [address] [facility] [place] [address] Phone Care Team Providers Care Litigation Secretary Name Role Phone Augustin Jackson MD Unavailable Unavailable Allergies, Adverse Reactions, Alerts Substance Reaction Status Criticality No Known Allergies Active No Inform ation Medications Medication Instructions Dosage Effective Dates (start - stop) Status Comments Prempro 0.3 mg-1.5 mg tablet take 1 tablet by oral route every day 1.00 tablet - Active Wellbutrin XL 300 mg 24 hr tablet, extended release take 1 tablet by oral route every morning 300 MG - Active Vyvanse 30 mg capsule take 1 capsule by oral route every day in the morning 30 MG - Active Procedures Procedure Date OFFICE/OUTPATIENT VISIT, [facility] OFFICE/OUTPATIENT VISIT, EST PREV VISIT, NEW, AGE 18-39 OFFICE/OUTPATIENT VISIT, NEW Advance Directives Directive Yes / No Effective Date File Name No Information Encounters Encounter Description Practice Location Reason(s) For Visit Diagnoses Date Provider Providers Copied on Encounter OFFICE/OUTPA TIENT VISIT, EST [facility], [address], [id number], [place] tel:[phone] [facility] anxiety1 (chief complaint) ADD (chief complaint) POV (chief complaint) knee pain1 (chief complaint) AmenorrheaAttention deficitGeneralized Anxiety DisorderPain in right knee 5 Manuel Ruffin. [address], [place], [id number] , [place]. tel:[phone] OFFICE/OUTPA TIENT VISIT, [facility], [address], [place], [place], [id number], tel:[phone] [facility] HLP (chief complaint) amenorrhea 1 (chief complaint) knee pain1 (chief complaint) ADD (chief complaint) Pain in right kneeAttention deficitGeneralized Anxiety DisorderAmenorrheaM ixed hyperlipidemia 5 Manuel Ruffin. [address] [facility] [place] [address], [place], [place], [address] , [place]. tel:[phone] PREV VISIT, NEW, AGE 18-39 [facility], [address], [place], [place], [address], [place] tel:[phone] [facility] physical (chief complaint) Encounter for general adult medical exam w abnormal findingsOther primary ovarian failureAttention deficitGeneralized Anxiety Disorder Apr-3 5 Manuel Ruffin. [address], [place], [place], [address] , [place]. tel:[phone] Family History Family Member Type Diagnosis Age At Onset Mother Problem pancreatitis Sister Problem bipolar Father Problem lung [place] Payers Payer name Insurance type Covered libertarian ID Authoriza ti(s) [facility] CI [id number] Social History Type Description Quantity Date Captured [...] Referral Referred To: Denis Rodriges MD [address] [place], [place], [phone] Ordered: Referrals: Allopathic & Osteopathic Physicians : Obstetrics & Gynecology. Denis Rodriges MD. Evaluate and treat ordered Referral Ordered: KNEE XRAY TWO-VIEW Right ordered Referral Ordered: [place], PELVIC (NONOBSTETRIC); ordered Appointment Rosita Hammer BOOKED History Of Present Illness Encounter Date Complaint History Of Prese nt Illness anxiety1 pt has chronic a nxiety and depression Pt is on wellbutrin and she still feels more depressed. pt denies any suicidal or homicidal thought. Pt denies any crying spells ADD Pt has ADD pt flores s not noticed much improvement with concerta. Pt still has difficulty with focus and concentration POV Pt has premature ovarian failure .Pt has hot flashes pt started prempro recently but has not noticed much improvement yet. pelvic ultrasound is benign and left ovary is not visualized knee pain1 Pt states that r ight knee pain resolved. X ray ok. Pt is ready to go back to work HLP Pt has mild HLP Pt has [...] chronically shrunk in size and she saw INFANT LEAD TEACHER when she was teenager and was told that she has premature ovarian failure Instructions Date Instruction Additional Infor vicion No Information Assessments Type Assessment Date assessment Amenorrhea assessment Attention deficit assessment Generalized Anxiety Disorder March assessment Pain in right knee Mental Status Date Cognitive Assessment Orientation - [place] ed to time, place, person, situation.
[2025-04-20 09:00] VITALS: BP 113/76; PULSE 85; RESP 16; TEMP 36.4; O2SAT 100
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
== END 2025-04-20 10:10 | disposition home or self-care (01) ==
PROVIDERS: Emergency Provider Nurse Practitioner; PCP Emergency Medicine
DX: S80.01XA Contusion of right knee, initial encounter (principal); S80.02XA Contusion of left knee, initial encounter; V49.40XA Driver injured in collision with unspecified motor vehicles in traffic accident, initial encounter; F17.290 Nicotine dependence, other tobacco product, uncomplicated
CPT/HCPCS: 73564; 99214; G0463